=== PATIENT | female | born 1980 | race Two or more races ===

== ENCOUNTER 2022-09-11 07:44 | Inpatient (IN) | payer OTHER ==
[~2022-09-11] VITALS: Ht 167.6 cm; Wt 91.6 kg
[2022-09-12] MEDS ORDERED: CLONAZEPAM0.5 MG (13:18)
[2022-09-12] MEDS ORDERED: SERTRALINE HCL50 MG (13:18)
[2022-09-15] MEDS ORDERED: LEVSIN/SL0.125 MG SL (10:36)
[2022-09-15] MEDS ORDERED: TRAMADOL HCL50 MG PO (10:36)
== END 2022-09-15 14:53 | disposition home or self-care (01) | DRG 740 ==
LOC: O/R 09-12 08:57 → SURH 09-12 13:24 → AMB-ENDOS 09-12 17:26 → EDSTATUS 09-12 17:27 → SURH 09-12 17:28
PROVIDERS: ADMIT Surgery; ATTEND Surgery
PROC: 0UT74ZZ Resection of Bilateral Fallopian Tubes, Percutaneous Endoscopic Approach (ICD-10-PCS; 2022-09-12)
PROC: 0UT24ZZ Resection of Bilateral Ovaries, Percutaneous Endoscopic Approach (ICD-10-PCS; 2022-09-12)
PROC: 07BC4ZZ Excision of Pelvis Lymphatic, Percutaneous Endoscopic Approach (ICD-10-PCS; 2022-09-12)
PROC: 07BD4ZZ Excision of Aortic Lymphatic, Percutaneous Endoscopic Approach (ICD-10-PCS; 2022-09-12)
PROC: 0WUF0JZ Supplement Abdominal Wall with Synthetic Substitute, Open Approach (ICD-10-PCS; 2022-09-12)
PROC: 0DTF4ZZ Resection of Right Large Intestine, Percutaneous Endoscopic Approach (ICD-10-PCS; 2022-09-12)
PROC: 0UT94ZZ Resection of Uterus, Percutaneous Endoscopic Approach (ICD-10-PCS; principal; 2022-09-12 15:45)
DX: D06.7 Carcinoma in situ of other parts of cervix (principal); K43.0 Incisional hernia with obstruction, without gangrene; Z20.822 Contact with and (suspected) exposure to COVID-19; D12.2 Benign neoplasm of ascending colon

== ENCOUNTER 2022-10-21 05:48 | Day surgery (SDC) | payer OTHER ==
[~2022-10-21 05:48] MED LIST: CLONAZEPAM0.5 MG; LEVSIN/SL0.125 MG SL; SERTRALINE HCL50 MG; TRAMADOL HCL50 MG PO
[2022-10-21] MEDS ORDERED: TRAM1TAB98 PO (13:02)
== END 2022-10-21 16:20 | disposition home or self-care (01) ==
LOC: CIR.AMB 05:48
PROVIDERS: ATTEND Surgery
DX: C18.2 Malignant neoplasm of ascending colon (principal); R59.0 Localized enlarged lymph nodes; D50.9 Iron deficiency anemia, unspecified; Z20.822 Contact with and (suspected) exposure to COVID-19